=== PATIENT | female | born 1940 | race Caucasian/White ===

== ENCOUNTER 2018-05-18 15:15 | Emergency (ER) | payer MEDICARE ==
[~2018-05-18] VITALS: Ht 162.6 cm; Wt 68.2 kg
[~2018-05-18 15:15] MED LIST: MECL12.584 PO
[2018-05-18 15:20] VITALS: BP 110/63
[2018-05-18] MEDS ORDERED: HYDR-4383 PO (16:00)
[2018-05-18] MEDS ORDERED: DOCU-28 PO (16:00)
[2018-05-18] MEDS ORDERED: bacitracin 15gm ointment TP ONE (16:20)
== END 2018-05-18 16:30 | disposition home or self-care (01) ==
LOC: ER 15:15
DX: S93.401A Sprain of unspecified ligament of right ankle, initial encounter (principal); I10 Essential (primary) hypertension; G89.29 Other chronic pain; Z98.890 Other specified postprocedural states; Z88.5 Allergy status to narcotic agent; Z79.899 Other long term (current) drug therapy; W11.XXXA Fall on and from ladder, initial encounter; Y93.89 Activity, other specified; Y92.89 Other specified places as the place of occurrence of the external cause; Y99.8 Other external cause status
CPT/HCPCS: 73610; 99284

== ENCOUNTER 2018-06-06 09:47 | Observation (INO) | payer MEDICARE ==
[~2018-06-06] VITALS: Ht 162.6 cm; Wt 68.0 kg
[~2018-06-06 09:47] MED LIST changes: +DOCU-28 PO; +HYDR-4383 PO
[2018-06-06 10:22] LABS: BASOPHILS # (AUTO) 0.1 X10'3 (0-0.2); BASOPHILS % (AUTO) 0.8 % (0-1); EOSINOPHILS # (AUTO) 0.1 X10'3 (0-0.9); EOSINOPHILS % (AUTO) 1.6 % (0-6); HEMATOCRIT 40.3 % (35.0-45.0); HEMOGLOBIN 13.7 g/dl (12.0-16.0); LYMPHOCYTES # (AUTO) 1.5 X10'3 (1.1-4.8); LYMPHOCYTES % (AUTO) 22.5 % (21-51); MEAN CORPUSCULAR VOLUME 91.1 FL (78-98); MEAN PLATELET VOLUME 8.7 FL (7.4-10.4); MONOCYTES # (AUTO) 0.6 X10'3 (0-0.9); MONOCYTES % (AUTO) 8.8 % (2-12); NEUTROPHILS # (AUTO) 4.3 X10'3 (1.8-7.7); NEUTROPHILS % (AUTO) 66.3 % (42-75); PLATELET COUNT 188 X10'3 (140-440); RED BLOOD COUNT 4.43 X10'6 (4.20-5.60); RED CELL DISTRIBUTION WIDTH 12.7 % (11.5-14.5); WHITE BLOOD COUNT 6.5 X10'3 (4.5-11.0)
[2018-06-06 10:36] LABS: PARTIAL THROMBOPLASTIN TIME 27 SECONDS (22-32); PROTHROMBIN TIME 10.1 SECONDS (9.0-12.0)
[2018-06-06 10:37] LABS: ALANINE AMINOTRANSFERASE 24 U/L (12-78); ALBUMIN 3.6 G/DL (3.4-5.0); ALBUMIN/GLOBULIN RATIO 1.1 (1.1-1.5); ALKALINE PHOSPHATASE 98 IU/L (46-116); ANION GAP 9 (8-16); ASPARTATE AMINO TRANSFERASE 18 U/L (10-37); BILIRUBIN,TOTAL 0.4 MG/DL (0.1-1.0); BLOOD UREA NITROGEN 19 MG/DL (7-18); BUN/CREATININE RATIO 24.4 (6.6-38.0); CALCIUM 9.1 MG/DL (8.5-10.1); CHLORIDE 96 MMOL/L (99-107); CREATININE 0.78 MG/DL (0.40-0.90); GLUCOSE 107 MG/DL (70-104); POTASSIUM 3.8 MMOL/L (3.5-5.1); SODIUM 133 MMOL/L (135-145); TOTAL CARBON DIOXIDE 28.3 MMOL/L (24-32); TOTAL PROTEIN 6.8 G/DL (6.4-8.2); eGFR 71 ML/MIN
--- NOTE | 2018-06-06 11:15 | NUR ---
JULIA SBAR TO NADEGE DUMONT.
[2018-06-06] MEDS ORDERED: aspirin 325mg tablet PO ONE (11:35)
[2018-06-06] MEDS ORDERED: AMLO2.5T2 PO (11:49)
[2018-06-06] MEDS ORDERED: LOSA25TA96 PO (11:49)
[2018-06-06] MEDS ORDERED: NITR0.4T48 SL (11:49)
[2018-06-06] MEDS ORDERED: CHLO25TA2 PO (11:49)
[2018-06-06] MEDS ORDERED: ASPI-1265 PO (11:49)
[2018-06-06] MEDS ORDERED: potassium Cl 40MEQ/NS 500ml 500 ML IV PRN ×2 (12:25)
[2018-06-06] MEDS ORDERED: magnesium 4gm in 100ml NS 100 ML IV PRN (12:25)
[2018-06-06] MEDS ORDERED: morphine 4 MG/ML inj SYRINge IV PRN (12:25)
[2018-06-06] MEDS ORDERED: potassium Cl 20 mEq SR tablet PO PRN ×2 (12:25)
[2018-06-06] MEDS ORDERED: ondansetron/PF 4mg/2ml inj IV PRN (12:25)
[2018-06-06] MEDS ORDERED: magnesium Cl slow-release 64mg tablet PO PRN (12:25)
[2018-06-06] MEDS ORDERED: magnesium 2GM in 50ml NS 50 ML IV PRN (12:25)
--- NOTE | 2018-06-06 14:15 | NUR ---
Patient in room [facility]. I have received report from Fabian DUMONT and had the opportunity to ask questions and assume patient care.
[2018-06-06 14:24] VITALS: BP 151/61
[2018-06-06 18:00] VITALS: BP 126/71
--- NOTE | 2018-06-06 18:49 | NUR ---
Patient in room [facility]. I have received report from JULIA Kaur and had the opportunity to ask questions and assume patient care. Addendum: 06/06/18 at 1849 by Sia Monreal RN Amended: Links added.
[2018-06-06] MEDS ORDERED: nitroGLYCERIN 0.4mg SUBLingual tab SL PRN (19:15)
[2018-06-06] MEDS ORDERED: regadenoson 0.4mg/5ml syringe IV ONE (19:15)
[2018-06-06] MEDS ORDERED: metoprolol tartrate 1mg/ml inj IV PRN (19:15)
--- NOTE | 2018-06-06 19:18 | NUR ---
Problems reprioritized. Patient report given, questions answered & plan of care reviewed with Adry Yusuf RN.
[2018-06-06] MEDS: heparin, porcine 5000 units/ml vial SQ SCH (21:56)
[2018-06-07] VITALS (12 sets, daily range): BP systolic 115–169; BP diastolic 48–97
[2018-06-07 05:03] LABS: BASOPHILS # (AUTO) 0.1 X10'3 (0-0.2); BASOPHILS % (AUTO) 0.9 % (0-1); EOSINOPHILS # (AUTO) 0.2 X10'3 (0-0.9); EOSINOPHILS % (AUTO) 2.5 % (0-6); HEMATOCRIT 38.6 % (35.0-45.0); HEMOGLOBIN 13.3 g/dl (12.0-16.0); LYMPHOCYTES # (AUTO) 1.8 X10'3 (1.1-4.8); LYMPHOCYTES % (AUTO) 26.3 % (21-51); MEAN CORPUSCULAR HEMOGLOBIN 31.2 PG (27.0-31.0); MEAN CORPUSCULAR HGB CONC 34.4 g/dL (33.0-36.5); MEAN CORPUSCULAR VOLUME 90.5 FL (78-98); MONOCYTES # (AUTO) 0.7 X10'3 (0-0.9); MONOCYTES % (AUTO) 10.1 % (2-12); NEUTROPHILS # (AUTO) 4.1 X10'3 (1.8-7.7); NEUTROPHILS % (AUTO) 60.2 % (42-75); PLATELET COUNT 166 X10'3 (140-440); RED BLOOD COUNT 4.26 X10'6 (4.20-5.60); RED CELL DISTRIBUTION WIDTH 12.8 % (11.5-14.5); WHITE BLOOD COUNT 6.8 X10'3 (4.5-11.0)
[2018-06-07 05:11] LABS: ALBUMIN 3.2 G/DL (3.4-5.0); ANION GAP 7 (8-16); BLOOD UREA NITROGEN 21 MG/DL (7-18); BUN/CREATININE RATIO 26.9 (6.6-38.0); CALCIUM 8.8 MG/DL (8.5-10.1); CHLORIDE 99 MMOL/L (99-107); CREATININE 0.78 MG/DL (0.40-0.90); GLUCOSE 103 MG/DL (70-104); MAGNESIUM 1.9 MG/DL (1.5-2.4); POTASSIUM 3.7 MMOL/L (3.5-5.1); SODIUM 134 MMOL/L (135-145); eGFR 71 ML/MIN
--- NOTE | 2018-06-07 06:10 | NUR ---
Patient in room [facility]. I have received report from JULIA Rider and had the opportunity to ask questions and assume patient care.
--- NOTE | 2018-06-07 06:48 | NUR ---
Problems reprioritized. Patient report given, questions answered & plan of care reviewed with JULIA ARCHIBALD.
[2018-06-07] MEDS: heparin, porcine 5000 units/ml vial SQ SCH (07:42)
[2018-06-07] MEDS ORDERED: chlorthalidone 25mg tablet PO SCH (08:00)
[2018-06-07] MEDS ORDERED: amLODIPine 5mg tablet PO SCH (08:00)
[2018-06-07] MEDS ORDERED: K and/or MAG REPLACEMENT MC SCH (08:00)
[2018-06-07] MEDS ORDERED: aspirin 81mg tab.chew PO SCH (08:00)
[2018-06-07] MEDS ORDERED: losartan 25mg tablet PO SCH (08:00)
--- NOTE | 2018-06-07 08:43 | NUR ---
Pt off the floor to lauro
[2018-06-07] MEDS ORDERED: aminophylline inj. 10 ML IV ONE (08:55)
[2018-06-07] MEDS ORDERED: regadenoson 0.4mg/5ml syringe IV ONE (08:55)
[2018-06-07] MEDS: aminophylline 250mg/10ml inj. IV PRN ×2 (09:29→10:07)
--- NOTE | 2018-06-07 10:15 | NUR ---
[facility]
--- NOTE | 2018-06-07 13:30 | NUR ---
DC inst provided to pt. IV DC'd, tip intact. All belongings sent w/pt. WC to front lobby.
== END 2018-06-07 13:41 | disposition home or self-care (01) ==
LOC: ER 09:47 → ED HOLD 12:23 → EDBEDREQ 13:28 → SUR 3N 14:20
PROVIDERS: ADMIT Internal Medicine; ATTEND Internal Medicine
DX: R07.89 Other chest pain (principal); J11.00 Influenza due to unidentified influenza virus with unspecified type of pneumonia; I10 Essential (primary) hypertension; I25.2 Old myocardial infarction; G89.29 Other chronic pain; R94.31 Abnormal electrocardiogram [ECG] [EKG]
CPT/HCPCS: 36415; 71045; 78452; 80048; 80053; 83735; 84484; 85025; 85610; 85730; 87070; 93005; 93017; 96372; 96374; 96376; 99284; A9500; G0378; J0280; J1644

== ENCOUNTER 2020-08-23 05:59 | Day surgery (SDC) | payer MEDICARE ==
[2020-08-17 10:21] LABS: BASOPHILS # (AUTO) 0.1 X10'3 (0-0.2); BASOPHILS % (AUTO) 0.9 % (0-1); EOSINOPHILS # (AUTO) 0.1 X10'3 (0-0.9); EOSINOPHILS % (AUTO) 1.2 % (0-6); HEMATOCRIT 41.2 % (35.0-45.0); HEMOGLOBIN 13.9 g/dl (12.0-16.0); LYMPHOCYTES # (AUTO) 1.6 X10'3 (1.1-4.8); LYMPHOCYTES % (AUTO) 22.8 % (21-51); MEAN CORPUSCULAR HEMOGLOBIN 31.8 PG (27.0-31.0); MEAN CORPUSCULAR HGB CONC 33.8 g/dL (33.0-36.5); MEAN CORPUSCULAR VOLUME 93.9 FL (78-98); MEAN PLATELET VOLUME 9.2 FL (7.4-10.4); MONOCYTES # (AUTO) 0.6 X10'3 (0-0.9); MONOCYTES % (AUTO) 8.7 % (2-12); NEUTROPHILS # (AUTO) 4.8 X10'3 (1.8-7.7); NEUTROPHILS % (AUTO) 66.4 % (42-75); PLATELET COUNT 178 X10'3 (140-440); RED BLOOD COUNT 4.39 X10'6 (4.20-5.60); RED CELL DISTRIBUTION WIDTH 12.9 % (11.5-14.5); WHITE BLOOD COUNT 7.2 X10'3 (4.5-11.0)
[2020-08-17 10:30] LABS: ALBUMIN 3.6 G/DL (3.4-5.0); ANION GAP 6 (8-16); BLOOD UREA NITROGEN 14 MG/DL (7-18); BUN/CREATININE RATIO 20.3 (6.6-38.0); CALCIUM 8.9 MG/DL (8.5-10.1); CHLORIDE 95 MMOL/L (99-107); CREATININE 0.69 MG/DL (0.40-0.90); GLUCOSE 108 MG/DL (70-104); POTASSIUM 3.8 MMOL/L (3.5-5.1); SODIUM 132 MMOL/L (135-145); TOTAL CARBON DIOXIDE 30.8 MMOL/L (24-32); eGFR 82 ML/MIN
[2020-08-17 10:35] LABS: PARTIAL THROMBOPLASTIN TIME 27 SECONDS (22-32)
[2020-08-23] VITALS (9 sets, daily range): BP systolic 119–160; BP diastolic 53–75
[~2020-08-23] VITALS: Ht 160 cm; Wt 63.5 kg
[~2020-08-23 05:59] MED LIST changes: +AMLO2.5T2 PO; +ASPI-1265 PO; +CHLO25TA2 PO; -DOCU-28 PO; -HYDR-4383 PO; +LOSA25TA96 PO; -MECL12.584 PO; +NITR0.4T48 SL
[2020-08-23] MEDS ORDERED: MULT-1085 PO (06:23)
[2020-08-23] MEDS ORDERED: CALCIUM PO (06:23)
[2020-08-23] MEDS ORDERED: normal saline 1,000 ML IV SCH ×2 (06:25→09:10)
[2020-08-23] MEDS ORDERED: LORazepam 0.5 MG tablet PO PRN (06:25)
[2020-08-23] MEDS ORDERED: LIDOcaine/PRILOcaine 5gm cream TP ONE (06:25)
[2020-08-23] MEDS ORDERED: diphenhydrAMINE 25mg capsule PO PRN (06:25)
[2020-08-23] MEDS ORDERED: nitroGLYCERIN-Tridil 50MG/D5W 250 ML IV ONE (07:22)
[2020-08-23] MEDS ORDERED: midazolam 1 mg/ML 2ml injection ONE (07:23)
[2020-08-23] MEDS ORDERED: LIDOcaine 1% (10mg/ml)w/preservative injection 20ml MDV ONE (07:23)
[2020-08-23] MEDS ORDERED: verapamil 2.5 mg/ml inj IV ONE (07:23)
[2020-08-23] MEDS ORDERED: heparin 1,000unit/ml 10ml vial 10 ML ONE (07:23)
[2020-08-23] MEDS ORDERED: iohexol 350MG/ML 100ml bottle IV ONE (07:23)
[2020-08-23] MEDS ORDERED: fentaNYL/PF 50MCG/1 ML 2ML syringe ONE (07:23)
[2020-08-23] MEDS ORDERED: HYDROcodone/acetaminophen 10/325mg tab PO PRN (09:10)
[2020-08-23] MEDS ORDERED: ondansetron/PF 4mg/2ml inj IV PRN (09:10)
[2020-08-23] MEDS ORDERED: proCHLORperazine 10 MG/2 ml inj IV PRN (09:10)
[2020-08-23] MEDS ORDERED: OXAZEpam 15mg capsule PO PRN (09:10)
[2020-08-23] MEDS ORDERED: HYDROcodone/acetaminophen 5mg/325mg tablet PO PRN (09:10)
[2020-08-30] MEDS ORDERED: FLUT16SP2 BOTHNARES (12:03)
[2020-08-30] MEDS ORDERED: CALC-1215 PO (12:03)
[2020-09-08] MEDS ORDERED: ATOR10TA PO (08:20)
[2020-09-08] MEDS ORDERED: AMIO200T62 PO (08:20)
[2020-09-08] MEDS ORDERED: LOP25T PO (08:20)
[2020-09-08] MEDS ORDERED: ASPI-1071 PO ×2 (08:20)
[2020-09-08] MEDS ORDERED: HYDR-3964 PO (08:20)
[2020-09-08] MEDS ORDERED: ASPI-1265 PO (09:26)
== END 2020-08-23 11:40 | disposition home or self-care (01) ==
LOC: SSTAY O 05:59
PROVIDERS: ATTEND Internal Medicine Interventional Cardiology
DX: R94.39 Abnormal result of other cardiovascular function study (principal); I25.10 Atherosclerotic heart disease of native coronary artery without angina pectoris; I11.9 Hypertensive heart disease without heart failure; I08.1 Rheumatic disorders of both mitral and tricuspid valves; I25.2 Old myocardial infarction; M19.90 Unspecified osteoarthritis, unspecified site; Z88.5 Allergy status to narcotic agent; Z79.899 Other long term (current) drug therapy; Z79.01 Long term (current) use of anticoagulants; Z90.710 Acquired absence of both cervix and uterus
CPT/HCPCS: 36415; 80048; 85025; 85610; 85730; 93005; 93458; 99152; 99153; C1769; C1894; J1644; J2001; J2250; J3010; J7030; Q0163; Q9967; A4620; A5120; J3490

== ENCOUNTER 2020-08-25 15:44 | Inpatient (IN) | payer MEDICARE ==
[~2020-08-25] VITALS: Ht 162.6 cm; Wt 63.6 kg
[~2020-08-25 15:44] MED LIST changes: -ASPI-1265 PO; +CALCIUM PO; +MULT-1085 PO
[2020-08-25 16:27] LABS: BASOPHILS % (AUTO) 0.5 % (0-1); EOSINOPHILS % (AUTO) 0.3 % (0-6); HEMATOCRIT 39.9 % (35.0-45.0); HEMOGLOBIN 13.6 g/dl (12.0-16.0); LYMPHOCYTES # (AUTO) 0.5 X10'3 (1.1-4.8); LYMPHOCYTES % (AUTO) 7.9 % (21-51); MEAN CORPUSCULAR HEMOGLOBIN 31.7 PG (27.0-31.0); MEAN CORPUSCULAR VOLUME 93.1 FL (78-98); MONOCYTES # (AUTO) 0.4 X10'3 (0-0.9); MONOCYTES % (AUTO) 6.2 % (2-12); NEUTROPHILS # (AUTO) 5.7 X10'3 (1.8-7.7); NEUTROPHILS % (AUTO) 85.1 % (42-75); PLATELET COUNT 156 X10'3 (140-440); RED BLOOD COUNT 4.28 X10'6 (4.20-5.60); RED CELL DISTRIBUTION WIDTH 12.9 % (11.5-14.5); WHITE BLOOD COUNT 6.6 X10'3 (4.5-11.0)
[2020-08-25 16:54] LABS: ALANINE AMINOTRANSFERASE 24 U/L (12-78); ALBUMIN 3.5 G/DL (3.4-5.0); ALBUMIN/GLOBULIN RATIO 1.2 (1.1-1.5); ALKALINE PHOSPHATASE 78 IU/L (46-116); ANION GAP 13 (8-16); ASPARTATE AMINO TRANSFERASE 19 U/L (10-37); BILIRUBIN,TOTAL 0.6 MG/DL (0.1-1.0); BLOOD UREA NITROGEN 17 MG/DL (7-18); BUN/CREATININE RATIO 20.2 (6.6-38.0); CALCIUM 8.7 MG/DL (8.5-10.1); CHLORIDE 96 MMOL/L (99-107); CREATININE 0.84 MG/DL (0.40-0.90); GLUCOSE 136 MG/DL (70-104); LIPASE 101 U/L (73-393); SODIUM 132 MMOL/L (135-145); TOTAL CARBON DIOXIDE 23.1 MMOL/L (24-32); TOTAL PROTEIN 6.4 G/DL (6.4-8.2); eGFR 65 ML/MIN
[2020-08-25 17:06] LABS: POTASSIUM 2.7 MMOL/L (3.5-5.1)
[2020-08-25] MEDS ORDERED: potassium Cl 20 mEq SR tablet PO STA (17:13)
[2020-08-25] MEDS ORDERED: POTASSIUM BICARB 20meq eff tab 20 MEQ TABLET.EFF PO SCH (17:20)
[2020-08-25] MEDS ORDERED: POTASSIUM BICARB 20meq eff tab 20 MEQ TABLET.EFF PO ONE (17:20)
[2020-08-25] MEDS ORDERED: ondansetron/PF 4mg/2ml inj IV ONE (17:20)
[2020-08-25] MEDS ORDERED: normal saline 1000ml 1,000 ML IV ONE (18:10)
[2020-08-25] MEDS: potassium CL 10mEq/100ml bag 100 ML IV SCH ×2 (18:12→19:32)
[2020-08-25 19:17] LABS: CLARITY,URINE CLEAR (Clear); COLOR,URINE YELLOW (Yellow); GLUCOSE, URINE NEGATIVE (Neg); KETONES,URINE NEGATIVE (Neg); LEUKOCYTE ESTERASE ,URINE NEGATIVE (Neg); NITRITES, URINE NEGATIVE (Neg); OCCULT BLOOD,URINE NEGATIVE (Neg); PROTEIN,URINE NEGATIVE (Neg); UROBILINOGEN,URINE 0.2 E.U/dL (0.2-1.0)
[2020-08-25 19:20] LABS: UA COLLECTION TYPE STRAIGHT CATH
[2020-08-25 19:41] LABS: MAGNESIUM 1.8 MG/DL (1.5-2.4)
[2020-08-25 20:23] LABS: ALBUMIN 3.2 G/DL (3.4-5.0); BLOOD UREA NITROGEN 13 MG/DL (7-18); BUN/CREATININE RATIO 19.4 (6.6-38.0); CHLORIDE 99 MMOL/L (99-107); CREATININE 0.67 MG/DL (0.40-0.90); GLUCOSE 110 MG/DL (70-104); POTASSIUM 3.2 MMOL/L (3.5-5.1); TOTAL CARBON DIOXIDE 23.8 MMOL/L (24-32); eGFR 84 ML/MIN
[2020-08-25 20:33] LABS: ANION GAP 12 (8-16); SODIUM 135 MMOL/L (135-145)
[2020-08-25] MEDS ORDERED: potassium Cl 40MEQ/1/2NS 520ml 520 ML IV PRN ×2 (20:50)
[2020-08-25] MEDS ORDERED: acetaminophen 325mg tablet PO PRN (20:50)
[2020-08-25] MEDS ORDERED: ondansetron/PF 4mg/2ml inj IV PRN (20:50)
[2020-08-25] MEDS ORDERED: potassium Cl 20 mEq SR tablet PO PRN ×2 (20:50)
[2020-08-25] MEDS ORDERED: magnesium hydroxide 30ml (MOM) UD suspension PO PRN (20:50)
[2020-08-25] MEDS ORDERED: mag hydrox/Alum hydrox/simeth 30ml oral suspension PO PRN (20:50)
[2020-08-25] MEDS ORDERED: nitroGLYCERIN 0.4mg SUBLingual tab SL PRN (20:55)
[2020-08-25 22:00] VITALS: BP 147/63
[2020-08-26] VITALS: BP 123/60
--- NOTE | 2020-08-26 06:23 | NUR ---
Problems reprioritized. Patient report given, questions answered & plan of care reviewed with Young DUMONT. Addendum: 08/26/20 at 0623 by Patty Zambrano RN Amended: Links added.
--- NOTE | 2020-08-26 06:27 | NUR ---
Patient in room [facility]. I have received report from Rosey DUMONT and had the opportunity to ask questions and assume patient care.
[2020-08-26 08:00] VITALS: BP 136/92
[2020-08-26] MEDS ORDERED: losartan 50mg tablet PO SCH (08:00)
[2020-08-26] MEDS ORDERED: K and/or MAG REPLACEMENT MC SCH (08:00)
[2020-08-26] MEDS ORDERED: amLODIPine 5mg tablet PO SCH (08:00)
[2020-08-26] MEDS ORDERED: heparin, porcine 5000 units/ml vial SQ SCH (08:00)
[2020-08-26 08:03] LABS: BASOPHILS % (AUTO) 0.5 % (0-1); EOSINOPHILS # (AUTO) 0.1 X10'3 (0-0.9); EOSINOPHILS % (AUTO) 0.7 % (0-6); HEMOGLOBIN 13.7 g/dl (12.0-16.0); LYMPHOCYTES # (AUTO) 1.4 X10'3 (1.1-4.8); LYMPHOCYTES % (AUTO) 19.3 % (21-51); MEAN CORPUSCULAR HEMOGLOBIN 31.5 PG (27.0-31.0); MEAN CORPUSCULAR HGB CONC 33.4 g/dL (33.0-36.5); MEAN CORPUSCULAR VOLUME 94.2 FL (78-98); MEAN PLATELET VOLUME 9.5 FL (7.4-10.4); MONOCYTES # (AUTO) 0.6 X10'3 (0-0.9); MONOCYTES % (AUTO) 8.2 % (2-12); NEUTROPHILS # (AUTO) 5.3 X10'3 (1.8-7.7); NEUTROPHILS % (AUTO) 71.3 % (42-75); PLATELET COUNT 175 X10'3 (140-440); RED BLOOD COUNT 4.35 X10'6 (4.20-5.60); RED CELL DISTRIBUTION WIDTH 12.9 % (11.5-14.5); WHITE BLOOD COUNT 7.5 X10'3 (4.5-11.0)
[2020-08-26 08:23] LABS: ALANINE AMINOTRANSFERASE 25 U/L (12-78); ALBUMIN 3.3 G/DL (3.4-5.0); ALBUMIN/GLOBULIN RATIO 1.1 (1.1-1.5); ALKALINE PHOSPHATASE 73 IU/L (46-116); ANION GAP 8 (8-16); ASPARTATE AMINO TRANSFERASE 17 U/L (10-37); BILIRUBIN,TOTAL 0.6 MG/DL (0.1-1.0); BLOOD UREA NITROGEN 13 MG/DL (7-18); BUN/CREATININE RATIO 17.1 (6.6-38.0); CALCIUM 8.7 MG/DL (8.5-10.1); CHLORIDE 101 MMOL/L (99-107); CREATININE 0.76 MG/DL (0.40-0.90); GLUCOSE 99 MG/DL (70-104); POTASSIUM 3.9 MMOL/L (3.5-5.1); SODIUM 136 MMOL/L (135-145); TOTAL CARBON DIOXIDE 27.5 MMOL/L (24-32); TOTAL PROTEIN 6.3 G/DL (6.4-8.2); eGFR 73 ML/MIN
[2020-08-26 11:00] VITALS: BP 131/65
[2020-08-26 11:14] LABS: ABG BASE EXCESS 1.6 mmol/L (-2.0-2.0); ABG HCO3 25.2 mmol/L (22.0-26.0); ABG OXYGEN SATURATION 95.5 % (94-97); ABG PCO2 (T) 36.1 mmHg (32.0-45.0); ALLEN'S TEST POSITIVE; FCOHb 0.5 % (0.0-3.9); FMetHb 0.1 % (0.0-1.5); FO2Hb 94.9 % (94-97); TOTAL HEMOGLOBIN 13.6 G/dl (12.0-16.0)
--- NOTE | 2020-08-29 14:26 | NUR ---
CASE MANAGEMENT DISCHARGE FOLLOW UP: Spoke with pt via telephone. Reports that she is doing okay so far; denies SOB, fever/chills, N/V, headache. Pt states that radial cath site is free of swelling, oozing/bleeding, pain; however there is a large bruise, she states about 6inches, not sure if any larger than at discharge as it was covered with bandage at that time, will notify MD if it gets larger or if there is any swelling/firmness. Pt admits to one episode of CP last night, states relieved by 1 dose SL Nitro, she states no reoccurance. Verbalizes understanding of s/sx requiring further evaluation/emergent assistance. 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 Verbalizes understanding of medications, not taking chlorthalidone. States no further questions/concerns at this time.
== END 2020-08-26 14:30 | disposition home or self-care (01) | DRG 641 ==
LOC: ER 15:44 → SUR 3N 20:47
PROVIDERS: ADMIT Internal Medicine; ATTEND Internal Medicine
DX: E87.6 Hypokalemia (principal); I25.10 Atherosclerotic heart disease of native coronary artery without angina pectoris; E87.2 Acidosis; G43.909 Migraine, unspecified, not intractable, without status migrainosus; Z88.8 Allergy status to other drugs, medicaments and biological substances; I10 Essential (primary) hypertension; M17.0 Bilateral primary osteoarthritis of knee; Z90.710 Acquired absence of both cervix and uterus; I25.2 Old myocardial infarction; G89.29 Other chronic pain; Z20.822 Contact with and (suspected) exposure to COVID-19
CPT/HCPCS: 36415; 36600; 71045; 80048; 80053; 81003; 82803; 83605; 83690; 83735; 84145; 84484; 85018; 85025; 87081; 87635; 93005; 94010; 96365; 96366; 96375; 99285; C9803; G0378; J1644; J2405; J3480; J7030

== ENCOUNTER 2022-12-26 05:14 | Inpatient (IN) | payer MEDICARE ==
[2022-12-26] VITALS (21 sets, daily range): BP systolic 148–182; BP diastolic 65–88; PULSE 60–120; RESP 12–40; TEMP 98.3; O2SAT 96–100
[~2022-12-26] VITALS: Ht 160 cm; Wt 59.1 kg
[~2022-12-26 05:14] MED LIST changes: +AMIO200T72 PO; -AMLO2.5T2 PO; +ATOR10TA PO; +CALC-1215 PO; -CALCIUM PO; -CHLO25TA2 PO; +FLUT16SP2 BOTHNARES; +FURO-150 PO; +HYDR-3964 PO; +LOP25T PO; +LOSA-415 PO; -LOSA25TA96 PO; -NITR0.4T48 SL
[2022-12-26 05:51] LABS: MEAN PLATELET VOLUME 10.1 FL (7.4-10.4)
[2022-12-26 05:53] LABS: BASOPHILS % (AUTO) 0.8 % (0-1); EOSINOPHILS # (AUTO) 0.1 X10'3 (0-0.9); EOSINOPHILS % (AUTO) 2.4 % (0-6); HEMATOCRIT 40.8 % (35.0-45.0); HEMOGLOBIN 13.8 g/dl (12.0-16.0); LYMPHOCYTES # (AUTO) 1.9 X10'3 (1.1-4.8); LYMPHOCYTES % (AUTO) 34.9 % (21-51); MEAN CORPUSCULAR HEMOGLOBIN 31.7 PG (27.0-31.0); MEAN CORPUSCULAR HGB CONC 33.8 g/dL (33.0-36.5); MONOCYTES # (AUTO) 0.5 X10'3 (0-0.9); MONOCYTES % (AUTO) 8.6 % (2-12); NEUTROPHILS % (AUTO) 53.3 % (42-75); PLATELET COUNT 119 X10'3 (140-440); RED BLOOD COUNT 4.34 X10'6 (4.20-5.60); RED CELL DISTRIBUTION WIDTH 13.5 % (11.5-14.5); WHITE BLOOD COUNT 5.6 X10'3 (4.5-11.0)
[2022-12-26 06:01] LABS: ALANINE AMINOTRANSFERASE 30 U/L (12-78); ALBUMIN 3.7 G/DL (3.4-5.0); ALBUMIN/GLOBULIN RATIO 1.2 (1.1-1.5); ALKALINE PHOSPHATASE 81 IU/L (46-116); ANION GAP 5 (8-16); ASPARTATE AMINO TRANSFERASE 25 U/L (10-37); BILIRUBIN,TOTAL 0.7 MG/DL (0.1-1.0); BLOOD UREA NITROGEN 17 MG/DL (7-18); CALCIUM 9.6 MG/DL (8.5-10.1); CHLORIDE 104 MMOL/L (99-107); CREATININE 0.81 MG/DL (0.40-0.90); GLUCOSE 105 MG/DL (70-104); SODIUM 138 MMOL/L (135-145); TOTAL CARBON DIOXIDE 29.3 MMOL/L (24-32); TOTAL PROTEIN 6.7 G/DL (6.4-8.2); eGFR 67 ML/MIN
[2022-12-26 06:08] LABS: PRO BRAIN NATRIURETIC PEPTIDE 330 PG/ML (0-450)
--- NOTE | 2022-12-26 06:49 | NUR ---
MARIA LUZMADELIN LUGO, DAUGHTER'S CELL: . DAUGHTER VERY INVOLVED IN PLAN OF CARE PATIENT'S IS HARD OF HEARING. DAUGHTER HELPS MANAGE MEDS, MAKE APPTS FOR PT, ETC.
[2022-12-26] MEDS ORDERED: ringers solution, lacted 1,000 ML IV ONE (07:05)
[2022-12-26] MEDS ORDERED: normal saline 1000ml 1,000 ML IV SCH (08:30)
[2022-12-26] MEDS ORDERED: acetaminophen 325mg tablet PO PRN (08:30)
[2022-12-26] MEDS ORDERED: magnesium 2GM in 50ml NS 50 ML IV PRN (08:30)
[2022-12-26] MEDS ORDERED: potassium Cl 40MEQ/1/2NS 520ml 520 ML IV PRN (08:30)
[2022-12-26] MEDS ORDERED: magnesium 4gm in 100ml NS 100 ML IV PRN (08:30)
[2022-12-26] MEDS ORDERED: ondansetron/PF 4mg/2ml inj IV PRN (08:30)
[2022-12-26] MEDS ORDERED: magnesium Cl slow-release 64mg tablet PO PRN (08:30)
[2022-12-26] MEDS ORDERED: potassium Cl 20 mEq SR tablet PO PRN ×2 (08:30)
[2022-12-26] MEDS ORDERED: regadenoson 0.4mg/5ml syringe IV PRN (08:35)
[2022-12-26] MEDS ORDERED: nitroGLYCERIN 0.4mg SUBLingual tab SL PRN (08:35)
[2022-12-26] MEDS ORDERED: metoprolol tartrate 1mg/ml inj IV PRN (08:35)
[2022-12-26] MEDS ORDERED: aminophylline 250mg/10ml inj. IV PRN (08:35)
[2022-12-26] MEDS ORDERED: ATOR20TA66 PO (13:29)
[2022-12-26] MEDS ORDERED: LOSA100T58 PO (13:29)
[2022-12-26] MEDS ORDERED: AMLO5TAB16 PO (13:29)
[2022-12-26] MEDS ORDERED: ACET-1008 PO (14:34)
[2022-12-26] MEDS ORDERED: acetaminophen 325mg tablet PO SCH (16:00)
[2022-12-26] MEDS ORDERED: heparin, porcine 5000 units/ml vial SQ SCH (20:00)
== END 2022-12-26 17:18 | disposition home or self-care (01) | DRG 313 ==
LOC: ER 05:15 → ED HOLD 08:31
PROVIDERS: ADMIT Internal Medicine; ATTEND Internal Medicine
PROC: 4A02XM4 Measurement of Cardiac Total Activity, External Approach (ICD-10-PCS; principal; 2022-12-26)
PROC: 3E033HZ Introduction of Radioactive Substance into Peripheral Vein, Percutaneous Approach (ICD-10-PCS; 2022-12-26)
DX: R07.89 Other chest pain (principal); I10 Essential (primary) hypertension; I73.9 Peripheral vascular disease, unspecified; I25.2 Old myocardial infarction; Z95.1 Presence of aortocoronary bypass graft; Z88.5 Allergy status to narcotic agent; Z88.8 Allergy status to other drugs, medicaments and biological substances
CPT/HCPCS: 36415; 71045; 78452; 80053; 83880; 84484; 85025; 93005; 93017; 93306; 96360; 99285; A9500; G0378; J2785; J7120